=== PATIENT | male | born 1975 | race Two or more races ===

== ENCOUNTER → 2020-07-13 15:00 | Outpatient (CLI) | payer OTHER | END | disposition home or self-care (01) | LOC: PPH VACUNA 15:00 → EDBD 15:00 | DX: Z23 Encounter for immunization (principal) ==

== ENCOUNTER 2020-08-03 08:00 | Outpatient (CLI) | payer OTHER | END 2020-08-03 08:30 | disposition home or self-care (01) | LOC: PPH VACUNA 08:00 | DX: Z23 Encounter for immunization (principal) ==